=== PATIENT | female | born 1945 | race Caucasian/White ===

== ENCOUNTER → 2017-10-23 | Outpatient (REF) | payer BC | LOC: M LAB REF 14:40 | PROVIDERS: ATTEND Internal Medicine | DX: Z79.899 Other long term (current) drug therapy (principal) ==

== ENCOUNTER → 2018-05-15 | Outpatient (REF) | payer BC ==
[2018-05-15 18:58] LABS: C REACTIVE PROTEIN QUANTITATIV 1.96 MG/DL (0.00-0.30)
== END ==
LOC: M LAB REF 17:47
DX: Z51.81 Encounter for therapeutic drug level monitoring (principal); Z79.899 Other long term (current) drug therapy

== ENCOUNTER → 2018-08-12 | Outpatient (REF) | payer BC ==
[2018-08-12 19:12] LABS: BASO # 0.1 10^3/uL (0.0-0.2); BASO % 0.6 % (0.0-1.0); EOS # 0.1 10^3/uL (0.0-0.50); EOS % 0.9 % (0.0-3.0); EOSINOPHIL,TOTAL CALCULATED 100 mm3 (0-740); HEMATOCRIT 41.9 % (36.0-47.0); HEMOGLOBIN 13.5 g/dl (12.0-15.5); IMMATURE GRANULOCYTE % 0.3 % (0-3.0); LYMPH % 16.1 % (24.0-44.0); MEAN CORPUSCULAR HGB CONC 32.2 g/dl (32.0-36.5); MEAN CORPUSCULAR VOLUME 90.1 fl (80.0-96.0); MONO # 0.9 10^3/uL (0.0-0.8); MONO % 6.9 % (0.0-5.0); NEUTROPHILS # 9.3 10^3/uL (1.8-7.7); NEUTROPHILS % 75.2 % (36.0-66.0); PLATELET COUNT, AUTOMATED 353 10^3/uL (150-450); RED BLOOD COUNT 4.65 10^6/uL (4.00-5.40); RED CELL DISTRIBUTION WIDTH 13.8 % (11.5-14.5); WHITE BLOOD COUNT 12.4 10^3/uL (4.0-10.0)
== END ==
LOC: M LAB REF 16:26
DX: R05 Cough (principal)
CPT/HCPCS: 85048

== ENCOUNTER → 2018-10-17 | Outpatient (REF) | payer BC ==
[2018-10-22 00:08] LABS: A1A FOR PHENOTYPE 166 mg/dL (90-200)
== END ==
LOC: M LAB REF 10:01
DX: J84.9 Interstitial pulmonary disease, unspecified (principal)
CPT/HCPCS: 82103

== ENCOUNTER → 2018-10-17 | Outpatient (REF) | payer BC ==
[2018-10-17 19:36] LABS: IMMUNOGLOBULIN A 476 MG/DL (70-400); IMMUNOGLOBULIN G 1530 MG/DL (681-1648); IMMUNOGLOBULIN M 151 MG/DL (40-230)
[2018-10-21 14:12] LABS: IMMUNOGLOBULIN D <1.34 mg/dL (<14.11)
[2018-10-21 14:12] LABS: ALPHA 1 ANTITRYPSIN 166 mg/dL (90-200)
== END ==
LOC: M LAB REF 16:36
DX: J84.9 Interstitial pulmonary disease, unspecified (principal)
CPT/HCPCS: 82785

== ENCOUNTER → 2018-11-26 | Outpatient (REF) | payer BC | LOC: M LAB REF 14:43 | PROVIDERS: ATTEND Internal Medicine | DX: R05 Cough (principal); R91.8 Other nonspecific abnormal finding of lung field ==

== ENCOUNTER → 2019-09-17 | Outpatient (REF) | payer BC | LOC: M LAB REF 12:18 | PROVIDERS: ATTEND Internal Medicine | DX: E27.9 Disorder of adrenal gland, unspecified (principal) ==

== ENCOUNTER → 2020-04-24 | Outpatient (CLI) | payer BC | LOC: M LABSMTC 09:26 | PROVIDERS: ATTEND Otolaryngology Otolaryngology/Facial Plastic Surgery | DX: Z01.818 Encounter for other preprocedural examination (principal); Z11.59 Encounter for screening for other viral diseases | CPT/HCPCS: C9803; U0003 ==

== ENCOUNTER → 2020-08-16 | Outpatient (REF) | payer BC ==
[2020-08-23 20:07] LABS: ALDOSTERONE 1.7 ng/dL (0.0-30.0); METANEPHRINE PLASMA 33.8 pg/mL (0.0-88.0); NORMETANEPHRINE PLASMA 107.1 pg/mL (0.0-191.8); RENIN LEVEL 0.444 ng/mL/hr (0.167-5.380)
== END ==
LOC: M LAB REF 12:16
PROVIDERS: ATTEND Internal Medicine
DX: E27.9 Disorder of adrenal gland, unspecified (principal)

== ENCOUNTER → 2021-06-29 | Outpatient (REF) | payer MEDICARE, BC | LOC: M LAB REF 16:34 | PROVIDERS: ATTEND Internal Medicine | DX: M05.79 Rheumatoid arthritis with rheumatoid factor of multiple sites without organ or systems involvement (principal) ==

== ENCOUNTER → 2021-12-27 | Outpatient (REF) | payer MEDICARE, BC | LOC: M LAB REF 11:56 | PROVIDERS: ATTEND Internal Medicine | DX: I10 Essential (primary) hypertension (principal) ==

== ENCOUNTER → 2022-04-27 | Outpatient (REF) | payer MEDICARE, BC | LOC: M LAB REF 17:05 | PROVIDERS: ATTEND Internal Medicine | DX: M05.79 Rheumatoid arthritis with rheumatoid factor of multiple sites without organ or systems involvement (principal) ==

== ENCOUNTER 2022-08-02 14:32 | Inpatient (IN) | payer BC, MEDICARE ==
[~2022-08-02] VITALS: Ht 162.6 cm; Wt 47.5 kg
[2022-08-02] MEDS ORDERED: MUCI1TAB16 PO (14:48)
[2022-08-02 19:25] LABS: BASO % 0.3 % (0.0-1.0); HEMATOCRIT 42.3 % (36.0-47.0); LYMPH # 1.5 10^3/uL (1.5-5.0); LYMPH % 10.7 % (24.0-44.0); MEAN CORPUSCULAR HEMOGLOBIN 29.5 pg (27.0-33.0); MEAN CORPUSCULAR HGB CONC 33.1 g/dl (32.0-36.5); MEAN CORPUSCULAR VOLUME 89.2 fl (80.0-96.0); MONO # 0.5 10^3/uL (0.0-0.8); MONO % 3.8 % (2.0-8.0); NEUTROPHILS # 11.7 10^3/uL (1.5-8.5); NEUTROPHILS % 84.8 % (36.0-66.0); PLATELET COUNT, AUTOMATED 326 10^3/uL (150-450); RED BLOOD COUNT 4.74 10^6/uL (4.00-5.40); WHITE BLOOD COUNT 13.8 10^3/uL (4.0-10.0)
[2022-08-02 19:38] LABS: INR 0.94
[2022-08-02 19:39] LABS: PARTIAL THROMBOPLASTIN TIME 33.9 SECONDS (25.9-37.0)
[2022-08-02] MEDS ORDERED: amLODIPine 5 MG TAB PO ONE ×2 (19:40→23:00)
[2022-08-02 20:07] LABS: BLOOD UREA NITROGEN 11 MG/DL (7-18); CALCIUM LEVEL 9.4 MG/DL (8.8-10.2); CARBON DIOXIDE LEVEL 29 MEQ/L (21-32); CHLORIDE LEVEL 102 MEQ/L (98-107); CREATININE FOR GFR 0.57 MG/DL (0.55-1.30); GLOMERULAR FILTRATION RATE > 60.0 (>39); GLUCOSE, FASTING 124 MG/DL (70-100); POTASSIUM SERUM 4.6 MEQ/L (3.5-5.1); SODIUM LEVEL 136 MEQ/L (136-145)
[2022-08-02 21:22] LABS: FREE THYROXINE INDEX 2.4 % (1.3-4.8); T UPTAKE 33 % (30-39); THYROID STIMULATING HORMONE 0.222 uIU/ML (0.358-3.740); THYROXINE (T4) 7.4 UG/DL (4.5-12.0)
[2022-08-02 22:05] LABS: RSV AMPLIFICATION NEGATIVE (NEGATIVE)
[2022-08-02] MEDS ORDERED: PROA1AER2 INH (22:55)
[2022-08-02] MEDS ORDERED: HOME MED LIST COMPLETE! XX SCH (22:55)
[2022-08-02] MEDS ORDERED: VITA100093 PO (22:55)
[2022-08-02] MEDS ORDERED: FOLI1TAB11 PO (22:55)
[2022-08-02] MEDS ORDERED: CALC500T38 PO (22:55)
[2022-08-02] MEDS ORDERED: HUMI40KI2 SC (22:55)
[2022-08-02] MEDS ORDERED: ALEN70TA82 PO (22:55)
[2022-08-02] MEDS ORDERED: PRED5TA PO (22:55)
[2022-08-02 23:00] VITALS: BP 238/90
[2022-08-02 23:15] VITALS: BP 238/90
[2022-08-02] MEDS: hydrALAZINE 20MG/ML 1ML VIAL (J0360 PER 20MG) IV PRN (23:33)
[2022-08-02 23:44] VITALS: BP 180/60
[2022-08-03] VITALS (7 sets, daily range): BP systolic 138–172; BP diastolic 54–70
[2022-08-03] MEDS ORDERED: ALBUTEROL 90 MCG/ACT 8GM HFA INHALER INH PRN (00:50)
[2022-08-03] MEDS: ACETAMINOPHEN TAB 650MG DOSE (2X325MG) PO PRN ×3 (01:55→22:01)
[2022-08-03] MEDS: hydrALAZINE 20MG/ML 1ML VIAL (J0360 PER 20MG) IV PRN (04:46)
[2022-08-03 06:47] LABS: BLOOD UREA NITROGEN 10 MG/DL (7-18); CARBON DIOXIDE LEVEL 26 MEQ/L (21-32); CHLORIDE LEVEL 103 MEQ/L (98-107); CREATININE FOR GFR 0.45 MG/DL (0.55-1.30); GLOMERULAR FILTRATION RATE > 60.0 (>39); GLUCOSE, FASTING 114 MG/DL (70-100); MAGNESIUM LEVEL 2.1 MG/DL (1.8-2.4); POTASSIUM SERUM 3.5 MEQ/L (3.5-5.1); SODIUM LEVEL 135 MEQ/L (136-145)
[2022-08-03 08:12] LABS: BASO # 0.1 10^3/uL (0.0-0.2); BASO % 0.4 % (0.0-1.0); EOS % 0.3 % (0.0-3.0); HEMATOCRIT 42.9 % (36.0-47.0); HEMOGLOBIN 13.9 g/dl (12.0-15.5); LYMPH # 2.4 10^3/uL (1.5-5.0); LYMPH % 16.9 % (24.0-44.0); MEAN CORPUSCULAR HEMOGLOBIN 29.3 pg (27.0-33.0); MEAN CORPUSCULAR HGB CONC 32.4 g/dl (32.0-36.5); MEAN CORPUSCULAR VOLUME 90.3 fl (80.0-96.0); MONO # 0.9 10^3/uL (0.0-0.8); MONO % 6.3 % (2.0-8.0); NEUTROPHILS # 10.7 10^3/uL (1.5-8.5); NEUTROPHILS % 75.8 % (36.0-66.0); PLATELET COUNT, AUTOMATED 323 10^3/uL (150-450); RED BLOOD COUNT 4.75 10^6/uL (4.00-5.40)
[2022-08-03 09:00] LABS: BLOOD UREA NITROGEN 11 MG/DL (7-18); CALCIUM LEVEL 8.8 MG/DL (8.8-10.2); CARBON DIOXIDE LEVEL 27 MEQ/L (21-32); CHLORIDE LEVEL 103 MEQ/L (98-107); CREATININE FOR GFR 0.55 MG/DL (0.55-1.30); GLOMERULAR FILTRATION RATE > 60.0 (>39); GLUCOSE, FASTING 112 MG/DL (70-100); POTASSIUM SERUM 3.9 MEQ/L (3.5-5.1); SODIUM LEVEL 135 MEQ/L (136-145)
[2022-08-03] MEDS: predniSONE 5 MG TAB PO SCH (10:48)
[2022-08-03] MEDS ORDERED: ceFAZolin SOD 2 GM in IV 1 EA IV ONE (21:45)
[2022-08-03] MEDS: SODIUM CHLORIDE NASAL 0.65% SPRAY BTL (OCEAN) PRN (22:01)
[2022-08-03] MEDS: NS 1,000 ML IV SCH (22:49)
[2022-08-04] VITALS (8 sets, daily range): BP systolic 142–174; BP diastolic 68–90
[2022-08-04] MEDS: ACETAMINOPHEN TAB 650MG DOSE (2X325MG) PO PRN ×2 (05:22→21:28)
[2022-08-04] MEDS: SODIUM CHLORIDE NASAL 0.65% SPRAY BTL (OCEAN) PRN (05:22)
[2022-08-04 07:23] LABS: BLOOD UREA NITROGEN 12 MG/DL (7-18); CARBON DIOXIDE LEVEL 27 MEQ/L (21-32); CHLORIDE LEVEL 105 MEQ/L (98-107); CREATININE FOR GFR 0.56 MG/DL (0.55-1.30); GLOMERULAR FILTRATION RATE > 60.0 (>39); GLUCOSE, FASTING 107 MG/DL (70-100); SODIUM LEVEL 139 MEQ/L (136-145)
[2022-08-04 07:27] LABS: BASO % 0.3 % (0.0-1.0); EOS # 0.1 10^3/uL (0.0-0.5); EOS % 0.8 % (0.0-3.0); HEMOGLOBIN 13.6 g/dl (12.0-15.5); LYMPH # 2.8 10^3/uL (1.5-5.0); LYMPH % 23.4 % (24.0-44.0); MEAN CORPUSCULAR HEMOGLOBIN 29.4 pg (27.0-33.0); MEAN CORPUSCULAR HGB CONC 32.4 g/dl (32.0-36.5); MEAN CORPUSCULAR VOLUME 90.9 fl (80.0-96.0); MONO # 0.9 10^3/uL (0.0-0.8); MONO % 7.8 % (2.0-8.0); NEUTROPHILS # 7.9 10^3/uL (1.5-8.5); NEUTROPHILS % 67.3 % (36.0-66.0); PLATELET COUNT, AUTOMATED 309 10^3/uL (150-450); RED BLOOD COUNT 4.62 10^6/uL (4.00-5.40); WHITE BLOOD COUNT 11.8 10^3/uL (4.0-10.0)
[2022-08-04] MEDS: predniSONE 5 MG TAB PO SCH (09:01)
[2022-08-04] MEDS: ASCORBIC ACID 500 MG TAB PO SCH (09:01)
[2022-08-04] MEDS: VITAMIN D 1,000 INTERNATIONAL UNITS TABLET PO SCH (09:02)
[2022-08-04] MEDS: FOLIC ACID 1MG TAB PO SCH (09:02)
[2022-08-04] MEDS: NS 1,000 ML IV SCH (09:04)
[2022-08-04] MEDS: LOSARTAN 25 MG TAB PO SCH (12:53)
[2022-08-04] MEDS ORDERED: ISOVUE-300 61% 50ML VIAL As Ordered ONE (14:20)
[2022-08-04] MEDS ORDERED: LIDOCAINE 1% SDV 30ML VIAL As Ordered ONE (14:20)
[2022-08-04] MEDS ORDERED: VANCOMYCIN 1000MG/20ML VIAL As Ordered ONE (14:21)
[2022-08-04] MEDS ORDERED: MUPIROCIN 2% OINT 22 GM TUBE As Ordered ONE (14:21)
[2022-08-04] MEDS ORDERED: propofoL 500 MG/50 ML VIAL As Ordered ONE (15:16)
[2022-08-04] MEDS ORDERED: MIDAZOLAM INJ 2MG/2ML VIAL (J2250 PER 1MG) As Ordered ONE (15:16)
[2022-08-04] MEDS ORDERED: fentaNYL 100 MCG/2 ML INJECTION As Ordered ONE (15:16)
[2022-08-04] MEDS ORDERED: LIDOCAINE 2% 100MG/5ML SDV (FOR ANES.) As Ordered ONE (15:17)
[2022-08-04] MEDS ORDERED: ONDANSETRON 4MG 2ML VIAL As Ordered ONE (15:17)
[2022-08-04] MEDS ORDERED: ceFAZolin 1GM VIAL (J0690 PER 500MG) As Ordered ONE (16:00)
[2022-08-04] MEDS ORDERED: ePHEDrine SULFATE 25 MG/5 ML(5MG/ML) SYRINGE As Ordered ONE (16:27)
[2022-08-04] MEDS ORDERED: LR 1,000 ML IV SCH (17:50)
[2022-08-04] MEDS ORDERED: ONDANSETRON 4MG 2ML VIAL IV PRN (17:50)
[2022-08-04] MEDS ORDERED: oxyCODONE 5MG TAB PO PRN (17:50)
[2022-08-04] MEDS ORDERED: HYDROMORPHONE HCL 0.5 MG/ 0.5 ML SYRINGE (J1170 PER 1) IV PRN (17:50)
[2022-08-04] MEDS ORDERED: fentaNYL 100 MCG/2 ML INJECTION IV PRN (17:50)
[2022-08-05 00:07] VITALS: BP 138/75
[2022-08-05 04:00] VITALS: BP 162/80
[2022-08-05] MEDS: ACETAMINOPHEN TAB 650MG DOSE (2X325MG) PO PRN ×2 (04:40→09:55)
[2022-08-05 07:14] LABS: BASO # 0.1 10^3/uL (0.0-0.2); BASO % 0.4 % (0.0-1.0); EOS # 0.2 10^3/uL (0.0-0.5); EOS % 1.5 % (0.0-3.0); HEMATOCRIT 39.6 % (36.0-47.0); HEMOGLOBIN 12.5 g/dl (12.0-15.5); LYMPH % 15.8 % (24.0-44.0); MEAN CORPUSCULAR HEMOGLOBIN 28.9 pg (27.0-33.0); MEAN CORPUSCULAR HGB CONC 31.6 g/dl (32.0-36.5); MEAN CORPUSCULAR VOLUME 91.7 fl (80.0-96.0); NEUTROPHILS # 9.1 10^3/uL (1.5-8.5); NEUTROPHILS % 73.9 % (36.0-66.0); PLATELET COUNT, AUTOMATED 259 10^3/uL (150-450); RED BLOOD COUNT 4.32 10^6/uL (4.00-5.40); WHITE BLOOD COUNT 12.3 10^3/uL (4.0-10.0)
[2022-08-05 07:49] LABS: BLOOD UREA NITROGEN 9 MG/DL (7-18); CALCIUM LEVEL 8.5 MG/DL (8.8-10.2); CARBON DIOXIDE LEVEL 28 MEQ/L (21-32); CHLORIDE LEVEL 105 MEQ/L (98-107); CREATININE FOR GFR 0.39 MG/DL (0.55-1.30); GLOMERULAR FILTRATION RATE > 60.0 (>39); GLUCOSE, FASTING 78 MG/DL (70-100); SODIUM LEVEL 136 MEQ/L (136-145)
[2022-08-05 08:21] VITALS: BP 164/86
[2022-08-05] MEDS: FOLIC ACID 1MG TAB PO SCH (08:31)
[2022-08-05] MEDS: LOSARTAN 25 MG TAB PO SCH (08:31)
[2022-08-05 08:32] VITALS: BP 164/86
[2022-08-05] MEDS: ASCORBIC ACID 500 MG TAB PO SCH (08:32)
[2022-08-05] MEDS: VITAMIN D 1,000 INTERNATIONAL UNITS TABLET PO SCH (08:32)
[2022-08-05] MEDS: predniSONE 5 MG TAB PO SCH (08:32)
[2022-08-05] MEDS ORDERED: PRED5TA PO (10:13)
[2022-08-05] MEDS ORDERED: ACET1TAB55 PO (10:13)
[2022-08-05] MEDS ORDERED: AMLO1TAB25 PO (10:13)
[2022-08-05] MEDS ORDERED: CALC500T38 PO (10:39)
[2022-08-05 11:42] VITALS: BP 140/80
== END 2022-08-05 12:32 | disposition home or self-care (01) | DRG 171 ==
LOC: M ED 14:32 → M ED INP 14:33 → ENRESERV 22:36 → M PCU 23:04 → OBSVTOIN 08-04 13:17
PROVIDERS: ADMIT Internal Medicine; ATTEND Student in an Organized Health Care Education/Training Program
PROC: 02HK3JZ Insertion of Pacemaker Lead into Right Ventricle, Percutaneous Approach (ICD-10-PCS; 2022-08-04)
PROC: 02H63JZ Insertion of Pacemaker Lead into Right Atrium, Percutaneous Approach (ICD-10-PCS; 2022-08-04)
PROC: 0JH606Z Insertion of Pacemaker, Dual Chamber into Chest Subcutaneous Tissue and Fascia, Open Approach (ICD-10-PCS; principal; 2022-08-04 12:45)
DX: I44.1 Atrioventricular block, second degree (principal); U07.1 COVID-19; J44.9 Chronic obstructive pulmonary disease, unspecified; I10 Essential (primary) hypertension; I16.0 Hypertensive urgency; M06.9 Rheumatoid arthritis, unspecified; R51.9 Headache, unspecified; Z68.1 Body mass index [BMI] 19.9 or less, adult; K44.9 Diaphragmatic hernia without obstruction or gangrene; M81.0 Age-related osteoporosis without current pathological fracture; Z79.899 Other long term (current) drug therapy; Z87.891 Personal history of nicotine dependence

== ENCOUNTER → 2023-05-17 | Outpatient (REF) | payer MEDICARE, BC ==
[~2023-05-17] MED LIST: ACET1TAB55 PO; ALEN70TA82 PO; AMLO1TAB25 PO; CALC500T38 PO; FOLI1TAB11 PO; HUMI40KI2 SC; MUCI1TAB16 PO; PRED5TA PO; PROA1AER2 INH; VITA100093 PO
== END ==
LOC: M LAB REF 12:19
PROVIDERS: ATTEND Internal Medicine
DX: Z79.899 Other long term (current) drug therapy (principal)

== ENCOUNTER → 2024-02-19 | Outpatient (REF) | payer MEDICARE ==
[2024-02-19 14:33] LABS: C REACTIVE PROTEIN QUANTITATIV 0.7 MG/DL (<1.0)
== END ==
LOC: M LAB REF 12:50
PROVIDERS: ATTEND Internal Medicine
DX: E27.9 Disorder of adrenal gland, unspecified (principal); Z79.899 Other long term (current) drug therapy

== ENCOUNTER → 2024-08-04 | Outpatient (REF) | payer MEDICARE | LOC: M LAB REF 11:29 | PROVIDERS: ATTEND Internal Medicine | DX: E27.9 Disorder of adrenal gland, unspecified (principal); Z79.899 Other long term (current) drug therapy ==

== ENCOUNTER → 2024-11-06 | Outpatient (REF) | payer MEDICARE | LOC: M LAB REF 16:10 | PROVIDERS: ATTEND Internal Medicine | DX: M05.79 Rheumatoid arthritis with rheumatoid factor of multiple sites without organ or systems involvement (principal); Z79.899 Other long term (current) drug therapy ==

== ENCOUNTER → 2025-02-13 | Outpatient (REF) | payer MEDICARE | LOC: M LAB REF 12:01 | PROVIDERS: ATTEND Internal Medicine | DX: M05.79 Rheumatoid arthritis with rheumatoid factor of multiple sites without organ or systems involvement (principal) ==

== ENCOUNTER 2025-09-03 15:56 | Inpatient (IN) | payer MEDICARE ==
[~2025-09-03] VITALS: Ht 160 cm; Wt 46.8 kg
[2025-09-03 16:37] LABS: BASO # 0.0 10^3/uL (0.0-0.2); BASO % 0.2 % (0.0-1.0); EOS # 0.0 10^3/uL (0.0-0.5); EOS % 0.0 % (0.0-3.0); LYMPH # 0.9 10^3/uL (1.5-5.0); LYMPH % 4.9 % (24.0-44.0); MONO # 1.0 10^3/uL (0.0-0.8); MONO % 5.9 % (2.0-8.0); NEUTROPHILS # 15.3 10^3/uL (1.5-8.5); NEUTROPHILS % 88.5 % (36.0-66.0); PLATELET COUNT, AUTOMATED 279 10^3/uL (150-450)
[2025-09-03 16:38] LABS: VENOUS BASE EXCESS -0.4 (-2.0-2.0); VENOUS HCO3 25.1 MMOL/L (23.0-27.0); VENOUS O2 SATURATION 66.5 % (60.0-80.0); VENOUS PARTIAL PRESSURE CO2 44.2 mmHg (38.0-50.0); VENOUS PARTIAL PRESSURE O2 36.3 mmHg (30.0-50.0); VENOUS PH 7.372 UNITS (7.330-7.430); VENOUS STANDARD HCO3 23.3 MMOL/L; VENOUS TOTAL CO2 26.5 MMOL/L (24.0-28.0)
[2025-09-03] MEDS ORDERED: IPRATROPIUM 0.5 MG/ALBUTEROL 2.5 MG INH SOL UD 3 ML As Ordered ONE (16:42)
[2025-09-03] MEDS ORDERED: ALBUTEROL SULFATE 2.5 MG/0.5 ML INH CONCENTRATE NEB SOLN As Ordered ONE (16:43)
[2025-09-03] MEDS: ALBUTEROL SULFATE 2.5 MG/0.5 ML INH CONCENTRATE NEB SOLN NEB ONE (16:57)
[2025-09-03] MEDS: IPRATROPIUM 0.5 MG/ALBUTEROL 2.5 MG INH SOL UD 3 ML NEB ONE ×2 (16:57→17:48)
[2025-09-03 17:03] LABS: ALT/SGPT 48 U/L (7.0-40); AST/SGOT 46 U/L (<34); CALCIUM LEVEL 8.5 MG/DL (8.3-10.6); CARBON DIOXIDE LEVEL 26 MMOL/L (20-31); CHLORIDE LEVEL 97 MMOL/L (98-107); CREATININE FOR GFR 0.42 MG/DL (0.55-1.30); GLOMERULAR FILTRATION RATE > 90.0 (>32); POTASSIUM SERUM 3.9 MMOL/L (3.5-5.1); SODIUM LEVEL 134 MMOL/L (136-145)
[2025-09-03] MEDS ORDERED: ISOVUE-370 76% 100 ML VIAL As Ordered ONE (17:09)
[2025-09-03 17:57] LABS: ABG BASE EXCESS 0.1 (-2.0-2.0); ABG HCO3 24.3 MMOL/L (22.0-26.0); ABG O2 SATURATION 93.6 % (95.0-99.0); ABG PARTIAL PRESSURE CO2 38.3 mmHg (35.0-45.0); ABG PARTIAL PRESSURE O2 68.8 mmHg (75.0-100.0); ABG STANDARD HCO3 24.5 MMOL/L. (22.0-26.0); ABG TOTAL CO2 25.5 MMOL/L (23.0-31.0); ABG pH (ARTERIAL) 7.421 UNITS (7.350-7.450)
[2025-09-03] MEDS: PIPERACILLIN/TAZOBACTAM SOD 4.5 GM in DEXTROSE 5% (D5W) ADV/MINI-BAG 50 ML IV ONE (18:05)
[2025-09-03] MEDS ORDERED: IPRATROPIUM 0.5 MG/ALBUTEROL 2.5 MG INH SOL UD 3 ML NEB PRN (19:15)
[2025-09-03] MEDS ORDERED: ACET-897 PO (19:20)
[2025-09-03] MEDS ORDERED: C-251TAB PO (19:20)
[2025-09-03] MEDS ORDERED: SYMB16INH INH (19:20)
[2025-09-03] MEDS ORDERED: HUMI40IN2 SC (19:23)
[2025-09-03] MEDS ORDERED: HOME MED LIST COMPLETE! XX SCH (19:25)
[2025-09-03] MEDS: AZITHROMYCIN INJ 500 MG, VIAL MATE ADAPTER 1 EACH in NS 250 ML IV SCH (20:02)
[2025-09-03] MEDS: LR 1,000 ML IV SCH (20:11)
[2025-09-03 20:45] VITALS: BP 131/65; TEMP 98.3; O2SAT 88
[2025-09-03 20:47] VITALS: O2SAT 90
[2025-09-03 21:00] VITALS: BP 124/72; O2SAT 98
[2025-09-03] MEDS: VANCOMYCIN HCL 1,000 MG, VIAL MATE ADAPTER 1 EACH in NS 250 ML IV ONE (21:45)
[2025-09-03 22:00] VITALS: BP 124/75; O2SAT 98
[2025-09-03 23:00] VITALS: BP 131/68; O2SAT 100
[2025-09-03 23:57] VITALS: O2SAT 97
[2025-09-03] MEDS: SODIUM CHLORIDE HYPERTONIC 3% 4ML NEB SOL INH SCH (23:57)
[2025-09-04] VITALS (25 sets, daily range): BP systolic 109–146; BP diastolic 55–89; TEMP 97.2–98.5; O2SAT 92–100
[2025-09-04] MEDS: PIPERACILLIN/TAZOBACTAM SOD 4.5 GM in DEXTROSE 5% (D5W) ADV/MINI-BAG 50 ML IV SCH (00:18)
[2025-09-04 04:10] LABS: BASO # 0.0 10^3/uL (0.0-0.2); BASO % 0.1 % (0.0-1.0); EOS # 0.0 10^3/uL (0.0-0.5); EOS % 0.0 % (0.0-3.0); LYMPH # 0.8 10^3/uL (1.5-5.0); LYMPH % 4.5 % (24.0-44.0); MONO # 0.2 10^3/uL (0.0-0.8); MONO % 0.9 % (2.0-8.0); NEUTROPHILS # 16.6 10^3/uL (1.5-8.5); NEUTROPHILS % 94.0 % (36.0-66.0); PLATELET COUNT, AUTOMATED 247 10^3/uL (150-450)
[2025-09-04 04:41] LABS: ALT/SGPT 36 U/L (7.0-40); AST/SGOT 30 U/L (<34); CALCIUM LEVEL 7.9 MG/DL (8.3-10.6); CARBON DIOXIDE LEVEL 26 MMOL/L (20-31); CHLORIDE LEVEL 100 MMOL/L (98-107); CREATININE FOR GFR 0.41 MG/DL (0.55-1.30); GLOMERULAR FILTRATION RATE > 90.0 (>32); MAGNESIUM LEVEL 1.7 MG/DL (1.8-2.4); PHOSPHORUS LEVEL 2.7 MG/DL (2.4-5.1); POTASSIUM SERUM 3.9 MMOL/L (3.5-5.1); SODIUM LEVEL 136 MMOL/L (136-145)
[2025-09-04 08:02] LABS: VANCOMYCIN RANDOM 7.4 UG/ML
[2025-09-04] MEDS: predniSONE 20 MG TAB PO SCH (09:38)
[2025-09-04] MEDS: VANCOMYCIN HCL 750 MG, VIAL MATE ADAPTER 1 EACH in NS 250 ML IV SCH (09:39)
[2025-09-04] MEDS: ENOXAPARIN 40 MG/0.4 ML SYRINGE (J1650 PER 10MG) SC SCH (09:40)
[2025-09-04] MEDS ORDERED: VANCOMYCIN HCL 750 MG, VIAL MATE ADAPTER 1 EACH in NS 250 ML IV SCH (10:00)
[2025-09-04] MEDS: MAG SULF 1GM/100ML (MAG RUN) 1 GM in IV 1 EA IV SCH (11:25)
[2025-09-04] MEDS: guaiFENesin ER TABLET 600 MG TAB PO SCH (13:49)
[2025-09-04] MEDS: SYMBICORT 160/4.5MCG INHALER 6GM INH SCH (20:09)
[2025-09-04] MEDS: AZITHROMYCIN 250 MG TABLET PO SCH (20:53)
[2025-09-05] VITALS (8 sets, daily range): BP systolic 126–157; BP diastolic 63–90; TEMP 97.7–99.1; O2SAT 90–98
[2025-09-05] MEDS: BENZONATATE 100 MG CAPSULE PO PRN (00:13)
[2025-09-05 04:53] LABS: BASO # 0.0 10^3/uL (0.0-0.2); BASO % 0.2 % (0.0-1.0); EOS # 0.0 10^3/uL (0.0-0.5); EOS % 0.0 % (0.0-3.0); LYMPH # 1.9 10^3/uL (1.5-5.0); LYMPH % 8.4 % (24.0-44.0); MONO # 1.2 10^3/uL (0.0-0.8); MONO % 5.3 % (2.0-8.0); NEUTROPHILS # 19.3 10^3/uL (1.5-8.5); NEUTROPHILS % 85.4 % (36.0-66.0); PLATELET COUNT, AUTOMATED 253 10^3/uL (150-450)
[2025-09-05 05:18] LABS: ALT/SGPT 36 U/L (7.0-40); AST/SGOT 35 U/L (<34); CALCIUM LEVEL 7.7 MG/DL (8.3-10.6); CARBON DIOXIDE LEVEL 29 MMOL/L (20-31); CHLORIDE LEVEL 101 MMOL/L (98-107); CREATININE FOR GFR 0.45 MG/DL (0.55-1.30); GLOMERULAR FILTRATION RATE > 90.0 (>32); POTASSIUM SERUM 3.9 MMOL/L (3.5-5.1); SODIUM LEVEL 138 MMOL/L (136-145)
[2025-09-05] MEDS: IPRATROPIUM 0.5 MG/ALBUTEROL 2.5 MG INH SOL UD 3 ML NEB SCH (11:00)
[2025-09-06] VITALS (8 sets, daily range): BP systolic 126–165; BP diastolic 63–83; TEMP 97–98.3; O2SAT 90–97
[2025-09-06 05:18] LABS: BASO # 0.0 10^3/uL (0.0-0.2); BASO % 0.1 % (0.0-1.0); EOS # 0.0 10^3/uL (0.0-0.5); EOS % 0.0 % (0.0-3.0); LYMPH # 2.4 10^3/uL (1.5-5.0); LYMPH % 16.6 % (24.0-44.0); MONO # 1.0 10^3/uL (0.0-0.8); MONO % 7.0 % (2.0-8.0); NEUTROPHILS # 10.6 10^3/uL (1.5-8.5); NEUTROPHILS % 74.9 % (36.0-66.0); PLATELET COUNT, AUTOMATED 287 10^3/uL (150-450)
[2025-09-06 05:44] LABS: ALT/SGPT 48 U/L (7.0-40); AST/SGOT 37 U/L (<34); CALCIUM LEVEL 7.9 MG/DL (8.3-10.6); CARBON DIOXIDE LEVEL 29 MMOL/L (20-31); CHLORIDE LEVEL 100 MMOL/L (98-107); CREATININE FOR GFR 0.47 MG/DL (0.55-1.30); GLOMERULAR FILTRATION RATE > 90.0 (>32); POTASSIUM SERUM 3.3 MMOL/L (3.5-5.1); SODIUM LEVEL 138 MMOL/L (136-145)
[2025-09-06] MEDS: POTASSIUM CHLORIDE 10MEQ SR TABLET PO SCH (09:50)
[2025-09-06] MEDS: amLODIPine 5 MG TAB PO ONE (18:32)
[2025-09-06] MEDS: AUGMENTIN 875 MG TAB PO SCH (20:26)
[2025-09-07 04:07] VITALS: BP 141/77; TEMP 97.9; O2SAT 94
[2025-09-07 05:51] LABS: PLATELET COUNT, AUTOMATED 320 10^3/uL (150-450)
[2025-09-07 06:16] LABS: CALCIUM LEVEL 8.4 MG/DL (8.3-10.6); CARBON DIOXIDE LEVEL 27 MMOL/L (20-31); CHLORIDE LEVEL 101 MMOL/L (98-107); CREATININE FOR GFR 0.44 MG/DL (0.55-1.30); GLOMERULAR FILTRATION RATE > 90.0 (>32); POTASSIUM SERUM 4.3 MMOL/L (3.5-5.1); SODIUM LEVEL 139 MMOL/L (136-145)
[2025-09-07 07:33] VITALS: BP 154/89; TEMP 97.5; O2SAT 92
[2025-09-07] MEDS ORDERED: MUCI600T31 PO (07:55)
[2025-09-07] MEDS ORDERED: AMOX875T2 PO (07:55)
[2025-09-07] MEDS ORDERED: SODI3NEB INH (07:55)
[2025-09-07 08:31] VITALS: BP 154/89
[2025-09-07] MEDS: amLODIPine 10 MG TAB PO SCH (08:31)
== END 2025-09-07 12:39 | disposition home or self-care (01) | DRG 193 ==
LOC: M ED 15:56 → EDBD 15:56 → M ED INP 19:11 → M ICU 20:24 → M PCU 09-05 21:04
PROVIDERS: ADMIT Internal Medicine Pulmonary Disease; ATTEND Student in an Organized Health Care Education/Training Program
DX: J14 Pneumonia due to Hemophilus influenzae (principal); J96.01 Acute respiratory failure with hypoxia; J47.0 Bronchiectasis with acute lower respiratory infection; J15.9 Unspecified bacterial pneumonia; I10 Essential (primary) hypertension; M06.9 Rheumatoid arthritis, unspecified; M81.0 Age-related osteoporosis without current pathological fracture; E83.42 Hypomagnesemia; Z95.0 Presence of cardiac pacemaker; R74.01 Elevation of levels of liver transaminase levels; Z79.52 Long term (current) use of systemic steroids; B97.89 Other viral agents as the cause of diseases classified elsewhere; Z79.899 Other long term (current) drug therapy

== ENCOUNTER → 2025-09-10 | Outpatient (REF) | payer MEDICARE ==
[~2025-09-10] MED LIST changes: +ACET-897 PO; +AMOX875T2 PO; +C-251TAB PO; +HUMI40IN2 SC; +MUCI600T31 PO; +SODI3NEB INH; +SYMB16INH INH
== END ==
LOC: M LAB REF 14:16
PROVIDERS: ATTEND Internal Medicine
DX: M05.79 Rheumatoid arthritis with rheumatoid factor of multiple sites without organ or systems involvement (principal)